=== PATIENT | female | born 1940 | race Caucasian/White ===

== ENCOUNTER 2017-01-22 15:11 | Inpatient (IN) | payer OTHER, MEDICAID ==
[~2017-01-22] VITALS: Ht 167.6 cm; Wt 49.5 kg
[2017-01-22 15:14] VITALS: BP 127/78
[2017-01-22] MEDS ORDERED: METF500T PO (15:23)
[2017-01-22] MEDS ORDERED: GLIP5TAB4 PO (15:23)
[2017-01-22] MEDS ORDERED: MEMA5TAB PO (15:23)
[2017-01-22] MEDS ORDERED: EMPA10TA PO (15:23)
[2017-01-22] MEDS ORDERED: ATOR40TA40 PO (15:23)
[2017-01-22] MEDS ORDERED: DONE10TA3 PO (15:23)
[2017-01-22] MEDS ORDERED: ONDANSETRON 4 MG/2 ML VIAL IVP ONE (15:30)
[2017-01-22] MEDS ORDERED: fentaNYL 0.05 MG/ML VIAL IVP ONE (15:30)
--- NOTE | 2017-01-22 15:30 | NUR ---
Patient noted to have existing wounds upon arrival to ER. Photos taken of wound and placed in chart. Wound covered with dressing. Physician informed.
--- NOTE | 2017-01-22 15:53 | NUR ---
77 YO FEMALE REBEL FROM [facility] C/O LEFT LEG PAIN; PATIENT WAS FOUND IN BED AT FACILITY LAYING ON HER RIGHT SIDE; PATIENT DENIES ANY RECENT FALLS OR INJURY; PT DENIES ANY HEAD, NECK, OR BACK PAIN; SKIN INTACT TO BL LEGS; SWELLING NOTED TO BL ANKLES AND FEET; SHORTENING NOTED TO L LEG; AAOX2 TO NAME AND SITUATION; PATIENT HAS HX OF DEMENITA; LUNGS CLEAR DIMINISED BL; HR EVEN AND REGULAR; ABD SOFT AND NON-TENDER; DENIES N/V/D; SKIN IS PINK/WARM/DRY; SCAR TO SACRAL AREA AND ERYTHEMA TO PERINEAL AREA; SEE PHOTOS IN CHART; PT DENIES ANY FEVER, CP, SOB, OR COUGH AT THIS TIME; PATIENT STATES PAIN OF 10/10 "SHARP" NONRADIATING PAIN TO L LEG AT THIS TIME; VSS; PATIENT POSITIONED FOR COMFORT; HOB ELEVATED; BEDRAILS UP X2; BED DOWN. ER MADE AWARE OF PT STATUS. Addendum: 01/22/17 at 1707 by NOE SCAR TO RIGHT LOWER BACK (NOT SACRAL AREA); erythema TO SACRAL AREA
--- NOTE | 2017-01-22 15:58 | NUR ---
PATIENT TO CT VIA GURNEY ACCOMPANIED BY BONDING AND COMPOSITE FABRICATOR
[2017-01-22 16:59] LABS: BASOPHILS # (AUTO) 0.1 K/uL (0.00-0.22); BASOPHILS % (AUTO) 1.2 % (0.0-2.0); EOSINOPHILS % (AUTO) 0.1 % (0.0-4.0); HEMATOCRIT 34.1 % (36-48); HEMOGLOBIN 11.4 g/dL (12.0-16.0); LYMPHOCYTES # (AUTO) 1.9 K/uL (2.5-16.5); LYMPHOCYTES % (AUTO) 17.4 % (20.5-51.1); MEAN CORPUSCULAR HEMOGLOBIN 30 pg (27-31); MEAN CORPUSCULAR HGB CONC 33 g/dL (33-37); MEAN CORPUSCULAR VOLUME 91 fL (80-94); MONOCYTES # (AUTO) 1.1 K/uL (0.8-1.0); MONOCYTES % (AUTO) 9.8 % (1.7-9.3); NEUTROPHILS # (AUTO) 7.8 K/uL (1.8-7.7); NEUTROPHILS % (AUTO) 71.5 % (42.2-75.2); PLATELET COUNT (AUTO) 335 K/uL (140-450); RED BLOOD CELL COUNT(AUTO) 3.75 MIL/uL (4.20-5.40); RED CELL DISTRIBUTION WIDTH 13.1 % (11.6-13.7); WHITE BLOOD COUNT (AUTO) 10.9 K/uL (4.8-10.8)
--- NOTE | 2017-01-22 17:03 | NUR ---
PATIENT'S PULSE OX=95-96%; PATIENT PLACED ON 2L NC; WILL FOLLOW UP
[2017-01-22 17:15] LABS: BILIRUBIN,URINE NEGATIVE (NEGATIVE); BLOOD, URINE 3+ (NEGATIVE); COLOR,URINE YELLOW (YELLOW); LEUKOCYTE ESTERASE ,URINE 2+ (NEGATIVE); NITRITE, URINE NEGATIVE (NEGATIVE); PH,URINE 5.5 (5.0-9.0); UGLUCOSE 3+ (NEGATIVE)
[2017-01-22 17:22] LABS: APPEARANCE,URINE CLOUDY (CLEAR)
[2017-01-22 17:28] LABS: ANION GAP 13.6 (8-16); CHLORIDE 99 mmol/L (98-107); CREATININE 1.2 mg/dL (0.6-1.3); GLUCOSE 240 mg/dL (74-106); POTASSIUM 4.6 mmol/L (3.5-5.1); SODIUM SERUM 136 mmol/L (136-145); UREA NITROGEN, BLOOD 31 mg/dL (7-18)
--- NOTE | 2017-01-22 17:28 | NUR ---
PATIENT RESTING WITH EYES CLOSED; VSS; NAD; PT TOLERATING 2L NC AND PULSE KO=989%
[2017-01-22 17:31] LABS: PROTHROMBIN TIME 10.1 secs (10.8-13.4)
[2017-01-22 17:36] LABS: RBC,URINE TOO NUMEROUS TO COUN /HPF (0-5); WBC,URINE TOO MANY TO COUNT /HPF (0-5)
--- NOTE | 2017-01-22 18:12 | NUR ---
PATIENT IS RESTING WITH EYES CLOSED; NAD; VSS; WILL CONTINUE TO MONITOR
--- NOTE | 2017-01-22 18:58 | NUR ---
Patient will be admitted to care of [facility]. Admited to [facility]. Will go to room 118. Belongings list completed. Report to Emy JIMENEZ.
--- NOTE | 2017-01-22 19:30 | NUR ---
RECEIVED REPORTS FROM DAY RN FELICIANO, PATIENT SLEEPING IN BED, OPENED EYES WHEN NAME WAS CALLED. ORIENTEDX1 GRANDDAUGHTER AT BEDSIDE. PATIENT RESPIRATION EVEN AND UNLABORED, NO S/S OF ACUTE DISTRESS NOTED, CALL LIGHT WITHIN REACH, FALL RISK PRECAUTION INITIATED PER HOSPITAL POLICY, WILL CONTINUE TO MONITOR.
[2017-01-22 20:00] VITALS: BP 110/66
--- NOTE | 2017-01-22 21:33 | NUR ---
PATIENT STATED," I'M HUNGRY AND MY BACK HURTS." PAGED DR. DIANA. RECEIVED ORDER OF MORPHINE SULFATE 2MG IVP Q4H PRN FOR SEVERE PAIN, NORCO 10/325 MG 1 TAB PO Q6H PRN FOR MODERATE PAIN, TYLENOL 500MG PO Q6H, PRN FOR MILD PAIN. DR. DIANA STATED," GIVE HER SOFT DIET FOR NOW, KEEP HER NPO AFTER MIDNIGHT." ORDERS READ BACK, DR. DIANA CONFIRMED.
--- NOTE | 2017-01-22 21:50 | NUR ---
OFFERED PATIENT TUNA SANDWICH AND CRANBERRY JUICE.
--- NOTE | 2017-01-22 22:10 | NUR ---
PATIENT SLEEPING IN BED, GRANDDAUGHTER STATED," SHE IS SLEEPING, DON'T WAKE HER UP."
[2017-01-22] MEDS ORDERED: HYDROcodone/APAP 10/325 MG 1 TAB TAB PO PRN (22:25)
[2017-01-22] MEDS ORDERED: ACETAMINOPHEN EXTRA STRENGTH 500 MG TAB PO PRN (22:25)
[2017-01-22] MEDS ORDERED: LORazepam 2 MG/ML VIAL IVP PRN (23:30)
--- NOTE | 2017-01-22 23:31 | NUR ---
PATIENT YELLING IN THE BED, AND IV IS ON THE BED NEXT TO HER ARM. UPON ASSESSMENT, NO ACTIVE BLEEDING AT THE IV SITE, IV TIP INTACT. MADE DR. DIANA AWARE. RECEIVED ATIVAN 0.5MG IVP ONCE FOR AGITATION.
[2017-01-23] VITALS: BP 127/63
--- NOTE | 2017-01-23 00:10 | NUR ---
PATIENT SLEEPING IN BED, RESPIRATION EVEN AND UNLABORED, EASY TO AROUSE VITAL SIGNS STABLE, REPOSITIONED PATIENT WITH SENIOR QA AUTOMATION ENGINEER USING LOGROLLING METHOD. PATIENT COMFORTABLY RESTING IN BED NOW. SAFETY MEASURE ENSURED, WILL CONTINUE TO MONITOR.
--- NOTE | 2017-01-23 02:05 | NUR ---
REPOSITIONED PATIENT WITH PROCESS CONTROL TECHNICIAN, PATIENT SLEEPING IN BED, RESPIRATION EVEN AND UNLABORED, WILL CONTINUE TO MONITOR.
--- NOTE | 2017-01-23 02:40 | NUR ---
SCD APPLIED TO BOTH LOWER EXTREMITIES. PATIENT SLEEPING IN BED, RESPIRATION EVEN AND UNLABORED, WILL CONTINUE TO MONITOR.
--- NOTE | 2017-01-23 03:25 | NUR ---
REPOSITION PATIENT WITH LEVEE SUPERINTENDENT, PATIENT TOLERATED WELL. RESPIRATION EVEN AND UNLABORED, WILL CONTINUE TO MONITOR.
[2017-01-23 04:00] VITALS: BP 105/60
--- NOTE | 2017-01-23 04:33 | NUR ---
PATIENT SLEEPING IN BED, RESPIRATION EVEN AND UNLABORED, REPOSITIONED PATIENT WITH ONSITE HEALTH COACH. CALL LIGHT WITHIN REACH SAFETY MEASURE ENSURED, WILL CONTINUE TO MONITOR.
[2017-01-23] MEDS ORDERED: DEXTROSE 50% 50 ML SYR IVP PRN (07:00)
--- NOTE | 2017-01-23 07:25 | NUR ---
RECEIVED REPORT FROM NIGHT NURSE, PT IS AAOX1, PT IS ON RA, IV TO R AC 22G SALINE LOCK, DRY AND INTACT. REDNESS TO SUZE AREA AND WOUND ON THE SACRAL AREA. WILLIAMSON IN PLACE DRAINING CLEAR YELLOW URINE, INITIAL ASSESSMENT DONE, REORIENTED PT TO ROOM, PLAN OF CARE DISCUSSED WITH PT, REINFORCEMENT NEEDED. ALL SAFETY PRECAUTIONS MET, CALL LIGHT WITHIN REACH, WILL CONTINUE TO MONITOR.
--- NOTE | 2017-01-23 07:25 | NUR ---
ENDORSED PLAN OF CARE TO DAY RN. PATIENT RESTING IN BED, NO S/S ACUTE DISTRESS NOTED, RESPIRATION EVEN AND UNLABORED.
--- NOTE | 2017-01-23 08:06 | NUR ---
PATIENT HAS BEEN SCREENED AND CATEGORIZED HIGH NUTRITION RISK. PATIENT WILL BE SEEN WITHIN 1-2 DAYS OF ADMISSION. 01/23/17-01/24/[address]
[2017-01-23] MEDS: BLOOD GLUCOSE MONITORING 1 DEV DEV FS SCH ×4 (08:27→20:47)
[2017-01-23 08:49] VITALS: BP 112/65
--- NOTE | 2017-01-23 09:54 | NUR ---
DUE MEDICATIONS GIVEN, PT RESTING COMFORTABLY, NO S/S OF DISTRESS NOTED. SAFETY PRECAUTIONS MET, CALL LIGHT WITHIN REACH, WILL CONTINUE TO MONITOR.
[2017-01-23] MEDS ORDERED: HYDRAGUARD CREAM TP PRN (10:45)
[2017-01-23] MEDS ORDERED: INTERDRY CLOTH TP SCH (10:45)
--- NOTE | 2017-01-23 10:50 | NUR ---
WOUND CARE EVALUATION NOTE: REASON FOR EVALUATION: BUTTOCK WOUND COMPLETE SKIN ASSESSMENT DONE ON THIS 77 Y/O FEMALE FROM SNF TO [facility] WITH INITIAL DX: LEFT HIP PAIN, INABILITY TO STAND AND WALK, ED X-RAY SHOWED FRACTURE OF LEFT HIP. PAST MEDICAL HISTORY : HTN, DM, ALZHEIMER'S DISEASE. ABOVE INFORMATION OBTAINED FROM ADMISSION H&P. MEDICATIONS INCLUDES: CEFTRIAXONE, INSULIN LISPRO AND HYDROCODONE. LAB. RESULTS 01/22/17 WERE WBC 10.9, H/H 11.4/34.1, GLUCOSE 240, PT/INR 10.1/1.0. PT. IS SCHEDULE FOR OPERATION TODAY. PT. ALERT BUT CONFUSE NOT ABLE TO FOLLOW DIRECTIONS, F/C 16FR PATENT WITH CLEAR YELLOW COLOR URINE OUTPUT, INCONTINENT OF BOWEL. SKIN IS WARM AND DRY TO TOUCH,WNL, SKIN INTACT. BLE NO EDEMA, PEDAL PULSE PRESENT AND STRONG, NO HAIR GROWTH, TOE NAILS CLEAN. INTEGUMENTARY: -PERINEAL, LEFT AND RIGHT GROINS MOISTURE RELATED DERMATITIS -LEFT BUTTOCK ALTER SKIN WITH DRY SCAB , PW PINK RECOMMENDATION: -KEEP SKIN DRY AND CLEAN AT ALL TIME -CLEANSE PERINEAL, LEFT AND RIGHT GROINS AREA WITH SOAP AND WATER, PAT DRY, APPLY HYDRAGUARD BID AND PRN IF SOILING. -APPLY INTERDRY TO LEFT AND RIGHT GROINS DAILY -LEFT BUTTOCK DRY SCAB KEEP DRY AND CLEAN LESLEY -TURN AND REPOSITION Q2H AVOID TO LEFT SIDE -ASSESS AND MONITOR SKIN CONDITION DURING POSITION CHANGE -OFF LOAD BILATERAL HEELS BY PLACING PILLOW UNDER CALVES AT ALL TIME UNLESS OTHERWISE CONTRAINDICATED. RECOMMENDATIONS DISCUSSED WITH PRIMARY RN WILL FOLLOW UP PT EVERY 7-10 DAYS AND PRN. PLEASE CONTACT WOUND CARE NURSE FOR ANY CONCERNS, QUESTIONS AND CHANGE IN WOUND CONDITION
[2017-01-23 12:00] VITALS: BP 117/61
[2017-01-23] MEDS: INSULIN LISPRO SLIDING SCALE 100 UNITS/ML VIAL SUBQ PRN ×3 (12:39→20:53)
[2017-01-23] MEDS: HYDRAGUARD CREAM TP SCH (12:42)
--- NOTE | 2017-01-23 12:43 | NUR ---
PT BS 157, 2 UNITS ADMINISTERED PER SLIDING SCALE ORDERS. PT IS CURRENTLY EATING, ALL SAFETY PRECAUTIONS MET, CALL LIGHT WITHIN REACH WILL CONTINUE TO MONITOR.
--- NOTE | 2017-01-23 13:55 | NUR ---
ENDORSED PLAN OF CARE TO ELAINE JIMENEZ RN FOR CONTINUITY OF CARE
--- NOTE | 2017-01-23 13:55 | NUR ---
RECEIVED REPORT FROM BARBARA PARIKH. PT AWAKE AND ALERT, NO SIGNS OF ACUTE DISTRESS. BOWEL SOUNDS ACTIVE IN ALL 4 QUADRANTS. BOWEL AND BLADDER INCONTINENCE. WILLIAMSON IN PLACE. PT BEDBOUND. IV PATENT AND ASYMPTOMATIC. SACRAL WOUND AND SUZE REDNESS NOTED. INTRODUCED SELF TO PATIENT. BED IN LOW POSITION WITH BILATERAL HALF SIDE RAILS UP, BED ALARM, CALL LIGHT WITHIN REACH. WILL CONTINUE TO MONITOR PATIENT.
--- NOTE | 2017-01-23 14:51 | NUR ---
echo completed. Notified Dr. Alejandro to read stat echo for cardiac clearance.
--- NOTE | 2017-01-23 15:14 | NUR ---
01/23/17 RD INITIAL ASSESSMENT COMPLETED PLEASE REFER TO NUTRITION ASSESSMENT UNDER CARE ACTIVITY FOR ESTIMATED NUTRITIONAL NEEDS. 1. WHEN MEDICALLY FEASIBLE, CONSIDER INITIATING PO DIET TO START ON CLEAR LIQUID DIET AND ADVANCE TOLERATED TO MECHANICAL SOFT, 60 GM CONSISTENT CARBOHYDRATE DIET 2. CONSIDER DIET HEALTH SHAKE 1X DAILY 3. RD TO FOLLOW UP WITHIN 2-3 DAYS; HIGH RISK GRETCHEN SOTO RD
[2017-01-23 16:00] VITALS: BP 105/60
--- NOTE | 2017-01-23 16:20 | NUR ---
PT RESTING COMFORTABLY IN BED, NO SIGNS OF ACUTE DISTRESS. BED IN LOW POSITION WITH BILATERAL HALF SIDE RAILS UP, BED ALARM ON, CALL LIGHT WITHIN REACH. WILL CONTINUE TO MONITOR.
--- NOTE | 2017-01-23 17:40 | NUR ---
PT SITTING UPRIGHT BEING FED DINNER BY ORDER TAKER, NO SIGNS OF ACUTE DISTRESS. BED IN HIGH POSITION WITH BILATERAL HALF SIDE RAILS UP, BED ALARM ON, CALL LIGHT WITHIN REACH. WILL CONTINUE TO MONITOR.
[2017-01-23] MEDS: MORPHINE SULFATE 2 MG/ML SYR IVP PRN (18:33)
--- NOTE | 2017-01-23 18:33 | NUR ---
PATIENT COMPLAINING OF PAIN 7/10 IN LEFT LEG. ADMINISTERED PRN MORPHINE ORDERED, WILL CONTINUE TO MONITOR. BED IN LOW POSITION WITH BILATERAL HALF SIDE RAILS UP, BED ALARM ON, CALL LIGHT WITHIN REACH.
--- NOTE | 2017-01-23 19:35 | NUR ---
PT AWAKE AND ALERT, NO SIGNS OF ACUTE DISTRESS. ENDORSED TO GI ASST NURSE FOR CONTINUITY OF CARE.
--- NOTE | 2017-01-23 19:40 | NUR ---
RECEIVED REPORTS FROM DAY RN. PATIENT RESTING IN BED, AWAKE ALERT ORIENTED X1, NO S/S OF ACUTE DISTRESS NOTED, RESPIRATION EVEN AND UNLABORED, GRANDDAUGHTER AT BEDSIDE. IV FLUSHED WITH NS 10ML, INTACT AND PATENT, CALL LIGHT WITHIN REACH, SAFETY MEASURE ENSURED, WILL CONTINUE TO MONITOR.
[2017-01-23 20:00] VITALS: BP 102/64
--- NOTE | 2017-01-23 22:15 | NUR ---
REPOSITIONED PATIENT WITH SENIOR SOFTWARE ANALYST, PATIENT TOLERATED WELL, RESPIRATION EVEN AND UNLABORED, WILL CONTINUE TO MONITOR.
[2017-01-24] VITALS: BP 114/59
--- NOTE | 2017-01-24 00:23 | NUR ---
PATIENT RESTING IN BED, NO S/S OF ACUTE DISTRESS NOTED, RESPIRATION EVEN AND UNLABORED, WILLIAMSON CARE AND PERINEUM CARE DONE, PATIENT TOLERATED WELL. REPOSITIONED PATIENT WITH RUNNER OUT. CALL LIGHT WITHIN REACH, SAFETY MEASURE ENSURED, WILL CONTINUE TO MONITOR.
[2017-01-24] MEDS: HYDRAGUARD CREAM TP SCH ×2 (00:44→12:08)
--- NOTE | 2017-01-24 02:39 | NUR ---
PATIENT RESTING IN BED, NO S/S OF ACUTE DISTRESS NOTED, RESPIRATION EVEN AND UNLABORED, REPOSITIONED PATIENT WITH ENDOCRINOLOGY PHYSICIAN, WILL CONTINUE TO MONITOR.
[2017-01-24 04:00] VITALS: BP 111/59
--- NOTE | 2017-01-24 04:32 | NUR ---
PATIENT SLEEPING IN BED, RESPIRATION EVEN AND UNLABORED, NO S/S OF ACUTE DISTRESS NOTED, WILL CONTINUE TO MONITOR.
[2017-01-24 06:13] LABS: BASOPHILS # (AUTO) 0.1 K/uL (0.00-0.22); BASOPHILS % (AUTO) 0.6 % (0.0-2.0); EOSINOPHILS # (AUTO) 0.1 K/uL (0-0.4); EOSINOPHILS % (AUTO) 1.4 % (0.0-4.0); HEMATOCRIT 27.9 % (36-48); HEMOGLOBIN 8.9 g/dL (12.0-16.0); LYMPHOCYTES # (AUTO) 1.7 K/uL (2.5-16.5); LYMPHOCYTES % (AUTO) 18.9 % (20.5-51.1); MEAN CORPUSCULAR HEMOGLOBIN 29 pg (27-31); MEAN CORPUSCULAR HGB CONC 32 g/dL (33-37); MEAN CORPUSCULAR VOLUME 92 fL (80-94); MONOCYTES # (AUTO) 0.8 K/uL (0.8-1.0); MONOCYTES % (AUTO) 9.2 % (1.7-9.3); NEUTROPHILS # (AUTO) 6.3 K/uL (1.8-7.7); NEUTROPHILS % (AUTO) 69.9 % (42.2-75.2); PLATELET COUNT (AUTO) 319 K/uL (140-450); RED BLOOD CELL COUNT(AUTO) 3.04 MIL/uL (4.20-5.40); RED CELL DISTRIBUTION WIDTH 12.9 % (11.6-13.7)
[2017-01-24 06:23] LABS: ANION GAP 13.2 (8-16); CARBON DIOXIDE 26.1 mmol/L (21-32); CHLORIDE 102 mmol/L (98-107); CREATININE 0.8 mg/dL (0.6-1.3); GLUCOSE 156 mg/dL (74-106); POTASSIUM 4.3 mmol/L (3.5-5.1); SODIUM SERUM 137 mmol/L (136-145); UREA NITROGEN, BLOOD 24 mg/dL (7-18)
[2017-01-24] MEDS: BLOOD GLUCOSE MONITORING 1 DEV DEV FS SCH ×4 (06:32→20:38)
--- NOTE | 2017-01-24 07:15 | NUR ---
ENDORSED PLAN OF CARE TO DAY RN, PATIENT RESTING IN BED, IN STABLE CONDITION.
--- NOTE | 2017-01-24 07:30 | NUR ---
RECEIVED BEDSIDE REPORT FROM CUTTER HEAD SHARPENER RN. DR DIANA AT PATIENT BEDSIDE. PT AWAKE AND ALERT, NO SIGNS OF ACUTE DISTRESS. BOWEL SOUNDS ACTIVE IN ALL [address], NO REDNESS OR IRRITATION AROUND INSERTION SITE. BOWEL AND BLADDER INCONTINENCE. PT BEDBOUND. SACRAL WOUND AND SUZE AREA REDNESS. IV PATENT AND ASYMPTOMATIC. RE-ORIENTED PATIENT TO HOSPITAL AND TO UNIT, PT UNABLE TO COMPREHEND. BED IN LOW POSITION WITH BILATERAL HALF SIDE RAILS UP, BED ALARM ON, CALL LIGHT WITHIN REACH. WILL CONTINUE TO MONITOR.
--- NOTE | 2017-01-24 07:42 | NUR ---
RECEIVED NEW ORDERS FROM DR DIANA, NOTED, WILL CARRY OUT.
[2017-01-24 08:00] VITALS: BP 109/60
[2017-01-24] MEDS: POTASSIUM CHL 20 MEQ/ 1/2 NS 1,000 ML IV SCH ×2 (08:41→18:37)
[2017-01-24] MEDS: MORPHINE SULFATE 2 MG/ML SYR IVP PRN ×2 (08:44→20:39)
--- NOTE | 2017-01-24 09:30 | NUR ---
RECEIVED ORDER FOR PACKED CELLS FROM DR SALCEDO PRIOR TO SURGERY, NOTED, WILL CARRY OUT.
--- NOTE | 2017-01-24 10:00 | NUR ---
SPOKE WITH PATIENT GRANDDAUGHTER VIA TELEPHONE AND OBTAINED VERBAL CONSENT FOR BLOOD TRANSFUSION. JAYMIE JIMENEZ, SECOND MED[employer] TECH[employer]ICIANS.
--- NOTE | 2017-01-24 10:52 | NUR ---
BEGAN BLOOD TRANSFUSION, PATIENT VITALS STABLE, BED IN LOW POSITION, BED ALARM ON WITH BILATERAL HALF SIDE RAILS UP, CALL LIGHT WITHIN REACH. WILL CONTINUE TO MONITOR.
[2017-01-24 12:00] VITALS: BP 102/57
--- NOTE | 2017-01-24 12:46 | NUR ---
PATIENT AWAKE AND ALERT, NO SIGNS OF ACUTE DISTRESS. BLOOD TRANSFUSING, NO SIGNS AND SYMPTOMS OF ADVERSE REACTIONS, VITAL SIGNS STABLE. TAKEN OFF UNIT TO OR FOR SURGERY WITH DR GOLDMAN.
[2017-01-24] MEDS ORDERED: BUPIVACAINE-MPF 0.75% 10 ML VIAL INJ ONE (13:18)
[2017-01-24] MEDS ORDERED: PROPOFOL 200 MG/20 ML VIAL IV ONE (13:18)
[2017-01-24] MEDS ORDERED: BUPIVACAINE-MPF 0.25% 30 ML VIAL INJ ONE (13:20)
[2017-01-24] MEDS ORDERED: BACITRACIN 50000 UNITS/1 VIAL ONE (13:20)
[2017-01-24] MEDS ORDERED: fentaNYL 0.05 MG/ML VIAL ONE (13:36)
[2017-01-24] MEDS ORDERED: HYDROmorphone 1 MG/ML AMP IVP PRN (14:00)
[2017-01-24] MEDS ORDERED: BLOOD GLUCOSE MONITORING 1 DEV DEV FS SCH (14:00)
[2017-01-24] MEDS ORDERED: ONDANSETRON 4 MG/2 ML VIAL IVP PRN (14:00)
[2017-01-24] MEDS ORDERED: ceFAZolin 1,000 MG VIAL ONE ×2 (14:26→15:23)
[2017-01-24 16:00] VITALS: BP 110/57
--- NOTE | 2017-01-24 16:05 | NUR ---
PATIENT BACK FROM OR, RECEIVED BEDSIDE REPORT FROM OR NURSE. PT AWAKE AND DROWSY, NO SIGNS OF ACUTE DISTRESS. PATIENT TO LAY FLAT FOR 4 HOURS TO AVOID SPINAL ANESTHESIA HEADACHE. BED IN LOW POSITION, BED ALARM ON, BILATERAL HALF SIDE RAILS UP, CALL LIGHT WITHIN REACH. BLOOD PRESSURE IS 110/57, PULSE 93, TEMPERATURE IS 97.4, PAIN 0/10, RESPIRATIONS 16, OXYGEN SATURATION 94%. WILL CONTINUE TO MONITOR.
--- NOTE | 2017-01-24 16:20 | NUR ---
PT SLEEPING, NO SIGNS OF ACUTE DISTRESS. BLOOD PRESSURE 111/57, PULSE 92, TEMPERATURE 97.4, RESPIRATIONS 16, PAIN 0/10, OXYGEN SATURATION 94%. BED IN LOW POSITION WITH BILATERAL HALF SIDE RAILS UP, BED ALARM ON, CALL LIGHT WITHIN REACH. WILL CONTINUE TO MONITOR.
--- NOTE | 2017-01-24 17:20 | NUR ---
PT SLEEPING AND LYING FLAT, NO SIGNS OF ACUTE DISTRESS. BED IN LOW POSITION, BED ALARM ON, CALL LIGHT WITHIN REACH. BLOOD PRESSURE 132/61, PULSE 97, OXYGEN SATURATION 93%, PAIN 0/10, RESPIRATIONS 16, TEMPERATURE 97.3. WILL CONTINUE TO MONITOR.
--- NOTE | 2017-01-24 18:48 | NUR ---
PT LYING FLAT IN BED RESTING COMFORTABLY, NO SIGNS OF ACUTE DISTRESS. BED IN LOW POSITION, BED ALARM ON, WITH BILATERAL HALF SIDE RAILS UP, CALL LIGHT WITHIN REACH. WILL CONTINUE TO MONITOR.
--- NOTE | 2017-01-24 19:10 | NUR ---
PT AWAKE AND ALERT, LYING FLAT IN BED. BED IN LOW POSITION WITH BILATERAL HALF SIDE RAILS UP, BED ALARM ON AND CALL LIGHT WITHIN REACH. ENDORSED TO BARBARA PULIDO FOR CONTINUITY OF CARE.
--- NOTE | 2017-01-24 19:30 | NUR ---
RECEIVED REPORT FROM AM NURSE. PT RESTING IN BED FLAT SUPINE, AOX1, CONFUSED, CALLING FOR PT'S GRANDDAUGHTER KINZA. NOTED SPO2 AT 88%, PT PUT ON 2L O2 NC, SPO2 94%, RR 20 UNLABORED. PT NOTED TAKING OFF O2 NC, PT EDUCATED ON IMPORTANCE OF O2 NC, WILL CONTINUE TO REINFORCE AND MONITOR PT KEEPING O2 NC ON. IV ACCESS SEEN AT BEDSIDE, CANNULA INTACT. PREVIOUS IV SITE AT LEFT HAND CLEANED AND COVERED WITH DRY GAUZE AND TAPE. WILL INSERT NEW IV LATER. WILLIAMSON CATH NOTED, DRAINING WELL. SACRAL WOUND NOTED, LESLEY, HYDRAGUARD APPLIED. SUZE REDNESS NOTED, INTERDRY ENSURED AT FOLDS. DISCUSSED AND REVIEWED PLAN OF CARE WITH PT. PT CONFUSED, WILL CONTINUE WITH CONSTANT REINFORCEMENT. ALL NEEDS MET. BED ALARM AND SAFETY MEASURES ENSURED. CALL LIGHT WITHIN REACH. WILL CONTINUE TO MONITOR.
[2017-01-24 20:00] VITALS: BP 117/66
--- NOTE | 2017-01-24 20:10 | NUR ---
PT'S GRANDDAUGHTER AND AT BEDSIDE. DISCUSSED AND REVIEWED PLAN OF CARE WITH PT AND PT'S FAMILY, PT'S FAMILY VERBALIZED UNDERSTANDING. PT'S FAMILY AT BEDSIDE ASSISTING PT TO EAT, ABLE TO TOLERATE SMALL AMOUNT.
--- NOTE | 2017-01-24 20:40 | NUR ---
NEW IV STARTED 22G ON LEFT AC. PT SLIGHTLY CONFUSED, BUT ABLE TO FOLLOW SIMPLE COMMANDS, ABLE TO TOLERATE PROCEDURE. IVF INFUSING WELL. ADMINISTERED DUE ANCEF IVPB WITH EDUCATION ORDERED. PT C/O PAIN. SEE PAIN ASSESSMENT. ADMINISTERED PAIN MED ORDERED. PT CLEANED, CHANGED GOWN AND BED LINENS. ALL NEEDS MET. BED ALARM AND SAFETY MEASURES ENSURED, SOFT HAND MITTENS PUT ON, CALL LIGHT WITHIN REACH. WILL CONTINUE TO MONITOR.
--- NOTE | 2017-01-24 22:50 | NUR ---
CHECKED ON PT. PT CONFUSED, STATING "MIGUELPORTER SYLVAIN ECHOLS" REPEATEDLY. PT IS FOUND LYING ON HER RIGHT SIDE. PT HELPED BACK TO FLAT SUPINE. MINIMAL SEROSANGUINOUS DRAINAGE NOTED ON TOP OF DRESSING. WILL CONTINUE TO MONITOR DRAINAGE. PT DENIES PAIN AT THIS TIME. PT O2 2L NC FOUND AT BEDSIDE. O2 2L NC REAPPLIED WITH EDUCATION, SPO2 96%, RR 18 UNLABORED. WILL CONTINUE TO MONITOR PT KEEPING O2 2L NC ON AND PROVIDE CONSTANT REINFORCEMENT. SOFT MITTENS SEEN REMOVED AT BEDSIDE, SOFT MITTENS REAPPLIED WITH EDUCATION. CALLED INSURANCE LICENSING SUPERVISOR FOR ABDUCTOR PILLOW, UNAVAILABLE AT THIS TIME. PLACED 2 PILLOWS TO ABDUCT PT'S LEGS. PT TOLERATED WELL. ALL NEEDS MET. BED ALARM AND SAFETY MEASURES ENSURED. CALL LIGHT WITHIN REACH. WILL CONTINUE TO MONITOR.
--- NOTE | 2017-01-24 23:49 | NUR ---
PT RESTING COMFORTABLY. O2 NC SEEN AT BEDSIDE, O2 NC REAPPLIED WITH EDUCATION, SPO2 93% AT RR 20 UNLABORED. IVF INFUSING WELL. LEFT HIP DRESSING WITH SAME AMOUNT OF MINIMAL SEROSANGUINOUS DRAINAGE AT TOP PORTION, WILL CONTINUE TO MONITOR. PILLOWS BETWEEN LEGS IN PLACE. ALL NEEDS MET. SAFETY MEASURES ENSURED. CALL LIGHT WITHIN REACH. WILL CONTINUE TO MONITOR.
[2017-01-25] VITALS: BP 126/64
[2017-01-25] MEDS: HYDRAGUARD CREAM TP SCH ×2 (01:06→13:36)
--- NOTE | 2017-01-25 02:44 | NUR ---
O2 NC SEEN AT BEDSIDE, O2 NC REAPPLIED WITH EDUCATION, SPO2 92% AT RR 20 UNLABORED. IV ACCESS SEEN AT BEDSIDE. IV CANNULA INTACT, PREVIOUS IV SITE CLEANED. WILL INSERT NEW IV. ALL NEEDS MET. SAFETY MEASURES ENSURED. CALL LIGHT WITHIN REACH. WILL CONTINUE TO MONITOR.
[2017-01-25 04:00] VITALS: BP 126/62
--- NOTE | 2017-01-25 05:02 | NUR ---
NEW IV INSERTED ON RIGHT FOREARM 22G, ADMINISTERED DUE ANCEF IVPB ORDERED. IVPB INFUSING WELL. ALL NEEDS MET. SAFETY MEASURES ENSURED. CALL LIGHT WITHIN REACH. WILL CONTINUE TO MONITOR.
[2017-01-25] MEDS: POTASSIUM CHL 20 MEQ/ 1/2 NS 1,000 ML IV SCH ×2 (05:03→16:51)
[2017-01-25 07:14] LABS: BASOPHILS # (AUTO) 0.1 K/uL (0.00-0.22); BASOPHILS % (AUTO) 0.7 % (0.0-2.0); EOSINOPHILS # (AUTO) 0.2 K/uL (0-0.4); EOSINOPHILS % (AUTO) 1.4 % (0.0-4.0); HEMATOCRIT 27.8 % (36-48); HEMOGLOBIN 9.1 g/dL (12.0-16.0); LYMPHOCYTES # (AUTO) 1.2 K/uL (2.5-16.5); MEAN CORPUSCULAR HEMOGLOBIN 29 pg (27-31); MEAN CORPUSCULAR HGB CONC 33 g/dL (33-37); MEAN CORPUSCULAR VOLUME 90 fL (80-94); MONOCYTES # (AUTO) 0.9 K/uL (0.8-1.0); MONOCYTES % (AUTO) 7.8 % (1.7-9.3); NEUTROPHILS # (AUTO) 8.5 K/uL (1.8-7.7); NEUTROPHILS % (AUTO) 79.1 % (42.2-75.2); PLATELET COUNT (AUTO) 313 K/uL (140-450); RED CELL DISTRIBUTION WIDTH 13.4 % (11.6-13.7); WHITE BLOOD COUNT (AUTO) 10.9 K/uL (4.8-10.8)
--- NOTE | 2017-01-25 07:15 | NUR ---
ENDORSED PLAN OF CARE TO AM NURSE. CONDITION STABLE.
[2017-01-25] MEDS: BLOOD GLUCOSE MONITORING 1 DEV DEV FS SCH ×3 (07:20→16:30)
--- NOTE | 2017-01-25 07:20 | NUR ---
RECEIVED REPORT FROM NIGHT NURSE AT BEDSIDE. PT IS RESTING IN BED FLAT SUPINE, AOX1, CONFUSED, AND SHOWS NO S/S OF ACUTE DISTRESS ON RA. IV NOTED ON THE R FA WRAPPED IN GAUZED WITH NO IVF'S RUNNINGS. IV IS PATENT AND INTACT. WHEN TRYING TO CONNECT PATIENT TO IVF'S PATIENT BEGAN TO PULL ON THE IV LINES. PATIENT HAS MITTENS AT BEDSIDE. MITTENS WERE PLACED ON PATIENT. WILLIAMSON CATHETER NOTED WITH YELLOW URINE AND DRAINING WELL. SACRAL WOUND NOTED, ENROLLMENT REPRESENTATIVE, HYDRAGUARD APPLIED. PERINEAL ERYTHEMA ON THE LEFT AND RIGHT GROIN MOISTURE RELATE DERMATITIS. INTERDRY ENSURED AT FOLDS. NOTED LEFT HIP DRESSING DRY AND INTACT WITH SMALL AMOUNT OF OLD SANGUINEOUS DRAINAGE. DISCUSSED AND REVIEWED PLAN OF CARE WITH PT. PT CONFUSED AND UNABLE TO COMPREHEND POC. WILL CONTINUE WITH CONSTANT REINFORCEMENT. ALL NEEDS MET. BED ALARM AND SAFETY MEASURES ENSURED. CALL LIGHT WITHIN REACH. WILL CONTINUE TO MONITOR.
[2017-01-25 08:00] VITALS: BP 130/60
[2017-01-25] MEDS ORDERED: FLUCONAZOLE 100 MG TAB PO SCH (09:00)
[2017-01-25 09:29] LABS: ANION GAP 15.3 (8-16); CARBON DIOXIDE 22.5 mmol/L (21-32); CHLORIDE 99 mmol/L (98-107); CREATININE 0.7 mg/dL (0.6-1.3); GLUCOSE 131 mg/dL (74-106); POTASSIUM 3.8 mmol/L (3.5-5.1); SODIUM SERUM 133 mmol/L (136-145); UREA NITROGEN, BLOOD 22 mg/dL (7-18)
--- NOTE | 2017-01-25 11:30 | NUR ---
CM NOTE PATIENT PLACED ON WILL CALL THROUGH [facility] GOING TO [facility]. PENDING ROOM #. Addendum: 01/25/17 at 1258 by Jeff Major RN DENTAL SPECIALIST TIME SET UP FOR 1630, RM 131C. FABY ESPARZA & JEREMIAS JIMENEZ MADE AWARE.
--- NOTE | 2017-01-25 11:57 | NUR ---
PATIENT WAS FOUND BY GIOVANNY TRAVIS WITH MITTENS TAKEN OFF AND IV ACCESS PULLED OUT. IV CANNULA IS INTACT. PATIENT DENIES PAIN AND SOB. PATIENT SHOWS NO ACUTE DISTRESS ON ROOM AIR. WILL CONTINUE TO MONITOR.
[2017-01-25 12:00] VITALS: BP 122/62
--- NOTE | 2017-01-25 12:58 | NUR ---
SS NOTE: PER VEENA FROM [facility] ([phone]), PT CAN GO TO ROOM 131C ANYTIME AFTER [address] YASSINE DIANA. ALEYDA MURRAY.
[2017-01-25] MEDS: INSULIN LISPRO SLIDING SCALE 100 UNITS/ML VIAL SUBQ PRN (13:44)
--- NOTE | 2017-01-25 15:00 | NUR ---
SPOKE WITH MAAME FROM [facility] AT [phone] AND GAVE PATIENT REPORT. SHE KNOWS TO CONTINUE DIFLUCAN 100MG PO FOR THE NEXT TWO DAYS AND IS UNDER THE CARE OF DR DIANA. ALL QUESTIONS WERE ANSWERED. MAAEM VERBALIZED UNDERSTANDING. CALL BACK NUMBER WAS GIVEN IF FURTHER QUESTIONS NEEDED.
[2017-01-25] MEDS ORDERED: FLUC100T PO (15:13)
--- NOTE | 2017-01-25 15:45 | NUR ---
CALLED PATIENT FAMILY REGARDING PATIENT DISCHARGE. NO ANSWER. LEFT VOICEMAIL AND CALL BACK NUMBER OF HOSPITAL.
[2017-01-25 16:00] VITALS: BP 115/56
--- NOTE | 2017-01-25 16:00 | NUR ---
GIOVANNY TRAVIS AND SUSAN WERE PROVIDING PATIENT WITH PERINEAL CARE WHEN PATIENT SUDDENLY PULLED OUT WILLIAMSON CATHETER. NO BLOOD NOTED AT PERINEAL AREA. PATIENT DENIES PAIN. PATIENT SHOWS NO S/S OF ACUTE DISTRESS ON ROOM AIR. PATIENT IS STABLE.
--- NOTE | 2017-01-25 16:15 | NUR ---
PATIENT DRESSING ON THE L HIP FROM ORIF WAS CHANGED. PATIENT DRESSINGS HAD MINIMAL SEROSANGUINEOUS DRAINAGE. THERE ARE TWO INCISIONS NOTED ON THE UPPER LEFT HIP AND ANOTHER INCISION ON THE DISTAL MID THIGH. THE UPPER L HIP INCISION HAS 10 JACKELYN WITH NO SIGNS OF INFECTION AND NO DRAINAGE. LOWER INCISION SITE HAS 4 JACKELYN CLEAN DRY AND INTACT WITH NO DRAINAGE. INCISIONS WERE CLEANED WITH NORMAL SALINE AND GAUZED AND COVERED WITH TWO ABD PADS AND SECURE WITH PAPER TAPE. PATIENT DENIES PAIN AND TOLERATED ACTIVITY WELL.
--- NOTE | 2017-01-25 16:30 | NUR ---
[facility] ARRIVED ONTO UNIT TO ADVERTISING ASSISTANT PATIENT.
--- NOTE | 2017-01-25 16:50 | NUR ---
[facility] ARRIVED ONTO UNIT TO CONTINUOUS DRYOUT OPERATOR PATIENT. PATIENT HAS BEEN DISCHARGED. PATIENT SHOWS NO S/S OF ACUTE DISTRESS ON ROOM AIR. PATIENT IS UNABLE TO COMPREHEND CONTINUITY OF CARE AND IS CONFUSED AND DISCHARGE INSTRUCTIONS WERE SIGNED BY TWO RN'S. ALL BELONGINGS ARE IN PATIENT'S POSSESSION. NO IV ACCESS TO DISCONTINUE. WRISTBANDS AND TELE MONITOR REMOVED. PATIENT DENIES PAIN. PATIENT WAS TRANSFERRED ONTO THE [facility] AND HAS LEFT THE UNIT IN STABLE CONDITION.
== END 2017-01-25 16:50 | DRG 481 ==
LOC: MED 15:11 → MTU 18:01
PROVIDERS: ADMIT Family Medicine; ATTEND Family Medicine
PROC: 30233N1 Transfusion of Nonautologous Red Blood Cells into Peripheral Vein, Percutaneous Approach (ICD-10-PCS; 2017-01-24)
PROC: 0QS704Z Reposition Left Upper Femur with Internal Fixation Device, Open Approach (ICD-10-PCS; principal; 2017-01-24 13:00)
DX: S72.142A Displaced intertrochanteric fracture of left femur, initial encounter for closed fracture (principal); N39.0 Urinary tract infection, site not specified; I11.0 Hypertensive heart disease with heart failure; G30.9 Alzheimer's disease, unspecified; I50.9 Heart failure, unspecified; E11.9 Type 2 diabetes mellitus without complications; D64.9 Anemia, unspecified; F02.80 Dementia in other diseases classified elsewhere, unspecified severity, without behavioral disturbance, psychotic disturbance, mood disturbance, and anxiety; M81.0 Age-related osteoporosis without current pathological fracture; W01.0XXA Fall on same level from slipping, tripping and stumbling without subsequent striking against object, initial encounter; F32.9 Major depressive disorder, single episode, unspecified; Y93.01 Activity, walking, marching and hiking; E78.5 Hyperlipidemia, unspecified; S31.819A Unspecified open wound of right buttock, initial encounter; Z91.81 History of falling; Z86.14 Personal history of Methicillin resistant Staphylococcus aureus infection; Y99.8 Other external cause status; Y92.129 Unspecified place in nursing home as the place of occurrence of the external cause; Z86.73 Personal history of transient ischemic attack (TIA), and cerebral infarction without residual deficits; Z87.81 Personal history of (healed) traumatic fracture; Z79.899 Other long term (current) drug therapy
CPT/HCPCS: 36415; 70450; 71010; 72125; 72170; 73502; 80048; 81001; 82948; 85025; 85610; 86886; 86900; 86901; 86920; 87081; 87086; 93005; 96374; 96375; 97140; 97530; 99285; C1713; C1763; J0690; J0696; J1644; J1815; J2060; J2270; J2405; J2704; J3010; J3480; J3490; J7030; J7060; P9016; Q0092